=== PATIENT | male | born 1965 | race Caucasian/White ===

== ENCOUNTER 2020-08-11 11:46 | Inpatient (IN) | payer MEDICARE ==
[~2020-08-11] VITALS: Ht 170.2 cm; Wt 61.8 kg
[~2020-08-11 11:46] MED LIST: CEFDINIR300 MG PO; GABAPENTIN600 MG PO; HYDROCODON-ACE1 EAC4 PO; LOPRESSOR25 MG PO; METOPROLOL TART50 MG PO; NORVASC5 MG PO; PLAVIX75 MG PO; RANEXA500 MG PO; TRAZODONE 50MG50 MG PO; ZOFRAN4 MG PO; ZPAK PO; [UNRECOGNIZED DRUG - OTHER]; [UNRECOGNIZED DRUG - REMARK]
[2020-08-11 12:39] LABS: BASOPHIL 0.2 % (0-2); EOSINOPHIL 0.4 % (0-5); HCT 47.8 % (42.0-52.0); HGB 16.6 g/dl (13.2-18.0); LYMPHOCYTE 15.7 % (15-48); MCH 33.7 pg (25.0-31.0); MCHC 34.7 g/dL (32.0-36.0); MCV 97.2 fL (78.0-100.0); MONOCYTE 13.1 % (0-12); MPV 10.3 fL (6.0-9.5); NEUTROPHIL 70.2 % (41-80); NRBC 0; PLT 283 K/uL (150-400); RBC 4.92 M/uL (4.70-6.00); RDW 13.5 % (11.5-14.0); WBC 9.4 K/uL (4.0-10.5)
[2020-08-11 12:50] LABS: INR 1.1 (0.9-1.2); PROTHROMBIN TIME 13.5 SECONDS (11.4-13.6)
[2020-08-11 12:51] LABS: PTT 34.5 SECONDS (22.2-34.7)
[2020-08-11 12:56] LABS: ALBUMIN 3.9 g/dL (3.4-5.0); BILIRUBIN - TOTAL 0.6 mg/dL (0.2-1.0); BUN/CREAT RATIO (CALC) 29.5 RATIO; CREATININE 0.88 mg/dL (0.67-1.17); GLOBULIN (CALCULATION) 4.5 g/dL; POTASSIUM 3.9 mmol/L (3.5-5.1); TOTAL PROTEIN 8.4 g/dL (6.4-8.2)
[2020-08-11 12:59] LABS: LACTIC ACID 4.8 mmol/L (0.4-1.9)
[2020-08-11 13:04] LABS: PRO-BNP 7635 pg/mL (<125)
[2020-08-11 13:06] LABS: CKMB 2.2 ng/mL (0.0-3.6)
--- NOTE | 2020-08-11 16:42 | NUR ---
REVIEWED [facility] WITH DR VERAS DUE TO INCREASED HEART RATE AND INCREASED RESPIRATIONS, PT DOES NOT HAVE AN SUSPECTED INFECTION. DR VERAS STATES THAT SHE WILL NOT BE ADDING FLUIDS AND THAT SHE WILL NOT START ANY ANTIBIOTICS TO PREVENT RESISTANCE. DISCUSSED WITH JENNY ROSADO
[2020-08-11] MEDS ORDERED: AMITRIPTYLINE H10 MG PO (16:43)
[2020-08-11] MEDS ORDERED: LIPITOR40 MG PO (16:44)
[2020-08-11] MEDS ORDERED: CYMBALTA 30MG C30 MG PO (16:44)
[2020-08-11] MEDS ORDERED: CELEBREX **OUT100 MG PO (16:44)
[2020-08-11] MEDS ORDERED: HYDROCODON-ACE1 EAC2 PO (16:45)
[2020-08-11] MEDS ORDERED: TOPROL XL 25MG25 MG PO (16:45)
[2020-08-11] MEDS ORDERED: LYRICA25 MG PO (16:46)
[2020-08-11 17:49] LABS: BILIRUBIN 1+ mg/dL (NEGATIVE); BLOOD TRACE-INTACT Ery/uL (NEGATIVE); CLARITY CLEAR (CLEAR); COLOR YELLOW (YELLOW); GLUCOSE (U) NORMAL (NORMAL); LEUKOCYTES NEGATIVE Leu/uL (NEGATIVE); NITRITE NEGATIVE (NEGATIVE); PROTEIN 2+ mg/dL (NEGATIVE); SPECIFIC GRAVITY >=1.030 (1.001-1.030)
[2020-08-11 17:59] LABS: SQUAMOUS EPITHELIAL CELLS RARE; URINARY RBC RARE
[2020-08-11 20:56] LABS: BUN/CREAT RATIO (CALC) 35.4 RATIO; CREATININE 0.79 mg/dL (0.67-1.17); POTASSIUM 4.1 mmol/L (3.5-5.1)
[2020-08-12 03:49] LABS: BASOPHIL 0.2 % (0-2); EOSINOPHIL 0 % (0-5); HGB 15.3 g/dl (13.2-18.0); LYMPHOCYTE 24.2 % (15-48); MCH 33.3 pg (25.0-31.0); MCHC 34.8 g/dL (32.0-36.0); MCV 95.9 fL (78.0-100.0); MONOCYTE 7.2 % (0-12); MPV 10.1 fL (6.0-9.5); NEUTROPHIL 67.3 % (41-80); NRBC 0; PLT 239 K/uL (150-400); RBC 4.59 M/uL (4.70-6.00); RDW 13.2 % (11.5-14.0); WBC 5.6 K/uL (4.0-10.5)
[2020-08-12 04:04] LABS: ALBUMIN 3.3 g/dL (3.4-5.0); BILIRUBIN - TOTAL 0.4 mg/dL (0.2-1.0); BUN/CREAT RATIO (CALC) 36.9 RATIO; CREATININE 0.65 mg/dL (0.67-1.17); GLOBULIN (CALCULATION) 4.1 g/dL; POTASSIUM 4.1 mmol/L (3.5-5.1); TOTAL PROTEIN 7.4 g/dL (6.4-8.2)
[2020-08-13 05:41] LABS: BASOPHIL 0.2 % (0-2); HCT 39.6 % (42.0-52.0); HGB 13.5 g/dl (13.2-18.0); LYMPHOCYTE 26.3 % (15-48); MCH 33.6 pg (25.0-31.0); MCHC 34.1 g/dL (32.0-36.0); MCV 98.5 fL (78.0-100.0); MONOCYTE 7.6 % (0-12); MPV 10.4 fL (6.0-9.5); NEUTROPHIL 64.6 % (41-80); NRBC 0; PLT 205 K/uL (150-400); RBC 4.02 M/uL (4.70-6.00); RDW 13.5 % (11.5-14.0); WBC 9.7 K/uL (4.0-10.5)
[2020-08-13 06:02] LABS: BUN/CREAT RATIO (CALC) 27.1 RATIO; CREATININE 0.85 mg/dL (0.67-1.17); POTASSIUM 4.5 mmol/L (3.5-5.1)
--- NOTE | 2020-08-13 16:33 | NUR ---
08/13/20 Mr. Rivera lives alone. He was independent in the home and community prior to admission. He uses 02 at night and reports [facility] to be the provider. Mr. Zafar reports that [facility] has not services his 02 DME in 2 years. - [facility] has not record of providing 02 nor is Medicare billing any company for 02. ALEJANDRO Herndon /RN reports patient not to qualify for 02 per walk test. After discussion with Dr. Llanes, patient was referred to PCP to order a sleep test to re-qualify patient for night-time 02. - Mr. Zafar was provided with smoking cessation education.
[2020-08-13] MEDS ORDERED: ATROVENT HFA12.9 GM INH (17:53)
[2020-08-13] MEDS ORDERED: PROVENTIL HFA6.7 GM INH (17:53)
[2020-08-13] MEDS ORDERED: DULERA 100 MCG8.8 GM INH (17:53)
== END 2020-08-13 18:15 | disposition home or self-care (01) | DRG 291 ==
LOC: FER 11:46 → FTCU 14:25
PROVIDERS: Emergency Medicine; Nurse Practitioner; ADMIT Internal Medicine
DX: I11.0 Hypertensive heart disease with heart failure (principal); J96.21 Acute and chronic respiratory failure with hypoxia; R65.11 Systemic inflammatory response syndrome (SIRS) of non-infectious origin with acute organ dysfunction; E87.2 Acidosis; I50.23 Acute on chronic systolic (congestive) heart failure; G89.29 Other chronic pain; J43.9 Emphysema, unspecified; Z20.822 Contact with and (suspected) exposure to COVID-19; F17.200 Nicotine dependence, unspecified, uncomplicated; E86.0 Dehydration; E78.5 Hyperlipidemia, unspecified; G47.33 Obstructive sleep apnea (adult) (pediatric); Z98.890 Other specified postprocedural states; Z95.5 Presence of coronary angioplasty implant and graft
CPT/HCPCS: 36415; 36600; 71046; 71250; 71275; 80048; 80053; 80061; 81001; 82553; 82803; 83605; 83880; 84484; 85025; 85379; 85610; 85730; 87040; 93005; 94010; 94640; 94667; 94668; J1650; J1956; J2930; J7040; Q9967; U0002

== ENCOUNTER 2021-07-03 15:31 | Emergency (ER) | payer MEDICARE ==
[~2021-07-03 15:31] MED LIST changes: +AMITRIPTYLINE H10 MG PO; +ATROVENT HFA12.9 GM INH; +CELEBREX **OUT100 MG PO; +CYMBALTA 30MG C30 MG PO; +DULERA 100 MCG8.8 GM INH; +HYDROCODON-ACE1 EAC2 PO; +LIPITOR40 MG PO; +LISINOPRIL10 MG PO; +LYRICA25 MG PO; +PROVENTIL HFA6.7 GM INH; +TOPROL XL 25MG25 MG PO
[2021-07-03 16:16] LABS: BASOPHIL 0.5 % (0-2); EOSINOPHIL 2.9 % (0-5); HCT 24.6 % (42.0-52.0); HGB 7.7 g/dl (13.2-18.0); LYMPHOCYTE 14.6 % (15-48); MCH 31.6 pg (25.0-31.0); MCHC 31.3 g/dL (32.0-36.0); MCV 100.8 fL (78.0-100.0); MONOCYTE 5.8 % (0-12); MPV 9.9 fL (6.0-9.5); NEUTROPHIL 75.7 % (41-80); NRBC 0; PLT 276 K/uL (150-400); RBC 2.44 M/uL (4.70-6.00); RDW 15.4 % (11.5-14.0); WBC 6.6 K/uL (4.0-10.5)
[2021-07-03 16:31] LABS: INR 1.17 (0.9-1.2); PROTHROMBIN TIME 14.3 SECONDS (11.8-13.4); PTT 30.3 SECONDS (24.4-34.7)
[2021-07-03 17:02] LABS: CREATININE 0.79 mg/dL (0.67-1.17); POTASSIUM 4.3 mmol/L (3.5-5.1)
[2021-07-03 17:03] LABS: ALBUMIN 2.8 g/dL (3.4-5.0); BILIRUBIN - TOTAL 0.3 mg/dL (0.2-1.0); C-REACTIVE PROTEIN 4.1 mg/dL (<=0.90); FT4 (FREE T4) 1.1 ng/dL (0.76-1.46); GLOBULIN (CALCULATION) 3.8 g/dL; MAGNESIUM 1.9 mg/dL (1.8-2.4); TOTAL PROTEIN 6.6 g/dL (6.4-8.2)
[2021-07-03 17:06] LABS: LACTIC ACID 0.9 mmol/L (0.4-1.9)
[2021-07-03 17:09] LABS: CORONAVIRUS 2019 SARS-COV-2 NEGATIVE (NEGATIVE); INFLUENZA A NAA NEGATIVE (NEGATIVE)
== END 2021-07-03 21:10 | disposition home or self-care (01) ==
LOC: FER 15:31
PROVIDERS: Emergency Medicine
DX: R07.89 Other chest pain (principal); R06.02 Shortness of breath; I25.2 Old myocardial infarction; I25.10 Atherosclerotic heart disease of native coronary artery without angina pectoris; Z79.02 Long term (current) use of antithrombotics/antiplatelets; Z20.822 Contact with and (suspected) exposure to COVID-19
CPT/HCPCS: 36415; 71275; 80053; 82550; 83605; 83735; 83880; 84145; 84439; 84484; 85025; 85610; 85730; 86140; 87040; 93005; Q9967; U0002